=== PATIENT | female | born 2000 | race Two or more races ===

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

== ENCOUNTER 2024-05-17 15:42 | Outpatient (CLI) | payer OTHER | END 2024-05-17 15:56 | disposition home or self-care (01) | LOC: RAD 15:42 | PROVIDERS: ATTEND Orthopaedic Surgery | DX: M25.571 Pain in right ankle and joints of right foot (principal); M79.671 Pain in right foot ==